=== PATIENT | male | born 1955 | race Caucasian/White ===

== ENCOUNTER → 2016-11-22 | Day surgery (SDC) | payer MEDICARE, OTHER | LOC: MSO 10:24 | DX: K29.70 Gastritis, unspecified, without bleeding (principal); R10.13 Epigastric pain; R10.12 Left upper quadrant pain; Z86.010 Personal history of colon polyps; K58.1 Irritable bowel syndrome with constipation; K58.0 Irritable bowel syndrome with diarrhea; I10 Essential (primary) hypertension; K21.9 Gastro-esophageal reflux disease without esophagitis; R19.4 Change in bowel habit; K57.30 Diverticulosis of large intestine without perforation or abscess without bleeding; K64.8 Other hemorrhoids; Z12.11 Encounter for screening for malignant neoplasm of colon | CPT/HCPCS: 00810; A4649; J3010; J7120 ==

== ENCOUNTER 2018-11-22 10:00 | Outpatient (RCR) | payer MEDICARE, OTHER | END 2018-12-23 | disposition still patient (30) | LOC: PT | DX: T84.84XA Pain due to internal orthopedic prosthetic devices, implants and grafts, initial encounter (principal); Z96.651 Presence of right artificial knee joint ==

== ENCOUNTER 2020-01-01 13:20 | Outpatient (RCR) | payer MEDICARE, OTHER | END 2020-01-01 14:00 | disposition still patient (30) | LOC: PT 13:20 | DX: Z96.651 Presence of right artificial knee joint (principal) ==

== ENCOUNTER 2021-12-28 10:41 | Outpatient (RCR) | payer MEDICARE, OTHER | END 2022-01-02 | disposition home or self-care (01) | LOC: OT | DX: G56.02 Carpal tunnel syndrome, left upper limb (principal) ==

== ENCOUNTER 2022-01-04 07:58 | Outpatient (RCR) | payer MEDICARE, OTHER | END 2022-01-25 15:56 | disposition home or self-care (01) | LOC: OT 07:58 | DX: G56.02 Carpal tunnel syndrome, left upper limb (principal) ==

== ENCOUNTER 2023-11-04 08:00 | Outpatient (RCR) | payer MEDICARE, OTHER | END 2023-12-03 | disposition home or self-care (01) | LOC: PT | DX: M70.62 Trochanteric bursitis, left hip (principal); Z96.652 Presence of left artificial knee joint ==